=== PATIENT | male | born 1945 | race Caucasian/White ===

== ENCOUNTER 2019-11-03 14:22 | Inpatient (IN) | payer MEDICARE, OTHER ==
--- NOTE | 2019-11-03 15:06 | CT ---
EXAM: CT cervical spine PROVIDED CLINICAL HISTORY: Hit back of head after falling from standing position. Dizziness. TECHNIQUE: Contiguous axial CT images are obtained through the cervical spine from the skull base to the T1-2 le randall. Sagittal and coronal reformatted images are provided. COMPARISON: None FINDINGS: Degenerative changes are seen in the cervical spine. There is straightening of the normal cervical lo rdotic curvature. Fusion of the C3-4 and C4-5 levels is present. There is narrowing of the intervertebral disc spaces at all levels of the cervical spine. There is trace anterolisthesis of C2 on C3. Multilevel facet degenerative changes are identified. Moderate bilateral neural foraminal narrowing greater on the right is present at the C5-6 level. No fracture or traumatic subluxation is seen involving the cervical spine. No prevertebral soft tissue swelling apparent. Visualized lung apices appear clear. Visualized thyroid gland demonstrates a grossly normal nonenhanced CT appearance. Vascular calcifications are seen. IMPRESSION: 1. Degenerative changes cervical spine without acute fracture or traumatic subluxation. 2. Trace anterolisthesis of C2 on C3 attributable to severe facet hypertrophic changes. 3. Straightening of normal cervical lordotic curvature which may be related to positioning or muscle spasm..
[2019-11-03 16:01] LABS: #Basophils 0.1 thou/uL (0.0-0.2); #Eosinphils 0.1 thou/uL (0.0-0.7); #Lymphocytes 1.3 thou/uL (1.20-3.40); #Monocytes 0.6 thou/uL (0.11-0.59); #Neutrophils 4.7 thou/uL (1.40-6.50); %Basophils 0.8 % (0.0-1.0); %Eosinophils 1.1 % (0.0-10.0); %Lymphocytes 19.7 % (21.0-51.0); %Monocytes 8.9 % (0.0-10.0); %Neutrophils 69.5 % (42.0-75.0); Mean Corpuscular HGB CONC 34.7 g/dL (32.0-36.0); Mean Corpuscular Hemoglobin 32.9 pg (27.0-31.0); Mean Corpuscular Volume 94.9 fL (78.0-98.0); Platelet Count 174 thou/uL (130-400); RBC Distribution Width 12.1 % (11.5-14.5); Red Blood Cell (RBC) Count 4.85 mill/uL (4.70-6.10); White Blood Cell (WBC) Count 6.8 thou/uL (4.8-10.8)
--- NOTE | 2019-11-03 16:05 | CT ---
EXAM: BRAIN CT WITHOUT IV CONTRAST: 11/03/19 HISTORY: Injury from a fall. FINDINGS: Fairly prominent left parietal scalp hematoma. There is no associated skull fracture. There does appe ar to be a small punctate focus of probable subdural blood overlying the right frontal region seen on images 15 and 16 of the axial scan. There is certainly no mass effect or midline shift. IMPRESSION: Small punctate focus of high density in the right frontal subdural space possibly represent a tiny moore bdural hemorrhage. Prominent left sided parietal scalp hematoma. Marked atrophy and chronic white mat ter ischemic changes. Short term follow-up should be considered. Findings were discussed with Dr. Prater in the Emergency Room at 3:15 p.m. Code CR POS: OFF
[2019-11-03 16:21] LABS: ALT (SGPT) 45 U/L (8-55); AST (SGOT) 53 U/L (5-34); Albumin 4.2 g/dL (3.4-4.8); Alkaline Phosphatase 51 U/L (40-110); Anion Gap 14 mmol/L (10-20); BUN (Urea Nitrogen) 18 mg/dL (8.4-25.7); Bilirubin, Total 0.5 mg/dL (0.2-1.2); Calc. Creatinine Clearance 0 mL/min (70-130); Calcium 9.9 mg/dL (7.8-10.44); Carbon Dioxide 26 mmol/L (23-31); Chloride 100 mmol/L (98-107); Estimated GFR-MDRD 82; Globulin 3.1 g/dL (2.4-3.5); Glucose 125 mg/dL (83-110); Protein, Total 7.3 g/dL (5.8-8.1); Sodium 136 mmol/L (136-145)
[2019-11-03 16:27] LABS: PTT 29.1 sec (22.9-36.1); Prothrombin Time 12.8 sec (12.0-14.7)
[2019-11-03] MEDS ORDERED: Acetaminophen 500 MG TAB ONE (17:29)
[2019-11-03] MEDS ORDERED: Acetaminophen 325 MG TAB PO PRN ×2 (17:43→17:48)
[2019-11-03] MEDS ORDERED: Docusate 100 MG CAP PO PRN (17:48)
[2019-11-03] MEDS ORDERED: hydrALAZINE 20 MG/ML VIAL SLOW IVP PRN ×2 (17:55→18:30)
[2019-11-03] MEDS ORDERED: traMADol HCl 50 MG TAB PO PRN (17:57)
--- NOTE | 2019-11-03 18:18 | PDOC.HHP ---
Hospitalist HPI - History of Present Illness Fall, head injury History of Present Illness: This is a 74-year-old male patient with a history of hypertension, hyperlipidemia, cataract status post repair bilaterally who presented to the ED this afternoon after a fall and head injury. Patient notes that about 3 weeks ago he started having dizziness intermittently for which he has been taking meclizine. Today however he bent over to feed his dog and lost his balance and fell. He hit his head on the ground. He has not been on any anti-coagulants. He called EMS who came to pick him up and brought him to the ED for further evaluation. Besides dizziness patient notes that he has had chronic tinnitus for a long time. However denies any other focal neurological deficits including difficulty swallowing, difficulty talking , extremity weakness. He complains of ongoing headache Patient notes that about 2 months ago he had some upper respiratory viral syndrome which has since resolved. Denies any previous stroke or head trauma. [place] has developed chronic bilateral tinnitus. He also drinks alcohol however he does not smoke. On arrival in the ED CT scan of his head noted Small punctate right frontal subdural hemorrhage. Also has chronic white matter changes. Hospitalist team was consulted for admission and also neurosurgery was consulted. Hospitalist ROS - Review of Systems Constitutional: denies: fever, chills, sweats, weakness Eyes: denies: vision change, conjunctivae inflammation, eyelid inflammation ENT: reports: other (He has chronic tinnitus bilaterally). denies: ear pain, nose congestion Respiratory: denies: cough, shortness of breath, hemoptysis, SOB with excertion Cardiovascular: denies: chest pain, palpitations, orthopnea, paroxysmal noc. dyspnea Genitourinary: denies: dysuria, frequency, incontinence Musculoskeletal: denies: neck pain, shoulder pain Neurological: denies: weakness, numbness, change in speech, confusion, seizures Hospitalist History - Past Medical History Cardiac: denies: HTN, Hyperlipidemia Pulmonary: reports: Other (FRANCISCO) - Past Surgical History Other Surgical History: Cataract surgery, - Family History Other Family History: Non contributory - Social History Smoking Status: Never smoker - Exam General Appearance: negative: awake alert Eye: negative: anicteric sclera Eye - other findings: Anisocoria with right pupil 4 mm and left 2. Both reactive to light. EOMI ENT - other findings: Small bruise on head Neck: supple, symmetric, no thyromegaly Heart: RRR, no murmur, no gallops, no rubs Respiratory: no wheezes, no rales, no ronchi, normal chest expansion Gastrointestinal: soft, non-tender, non-distended, normal bowel sounds, no palpable masses Extremities: no cyanosis, no clubbing Extremities - other findings: Trace pedal edema Neurological: cranial nerve grossly intact Neurological - other findings: No focal neurological deficit Hospitalist Results - Labs Result Diagrams: 11/03/19 15:53 11/04/19 05:25 Lab results: WBC 6.8 thou/uL (4.8-10.8) 11/03/19 15:53 Hgb 16.0 g/dL (14.0-18.0) 11/03/19 15:53 Hct 46.0 % (42.0-52.0) 11/03/19 15:53 MCV 94.9 fL (78.0-98.0) 11/03/19 15:53 Plt Count 174 thou/uL (130-400) 11/03/19 15:53 Neutrophils % 69.5 % (42.0-75.0) 11/03/19 15:53 Sodium 136 mmol/L (136-145) 11/03/19 15:53 Potassium 4.0 mmol/L (3.5-5.1) 11/03/19 15:53 Chloride 100 mmol/L (98-107) 11/03/19 15:53 Carbon Dioxide 26 mmol/L (23-31) 11/03/19 15:53 BUN 18 mg/dL (8.4-25.7) 11/03/19 15:53 Creatinine 0.90 mg/dL (0.7-1.3) 11/03/19 15:53 Glucose 125 mg/dL (83-110) H 11/03/19 15:53 Calcium 9.9 mg/dL (7.8-10.44) 11/03/19 15:53 Total Bilirubin 0.5 mg/dL (0.2-1.2) 11/03/19 15:53 AST 53 U/L (5-34) H 11/03/19 15:53 ALT 45 U/L (8-55) 11/03/19 15:53 Alkaline Phosphatase 51 U/L (40-110) 11/03/19 15:53 Serum Total Protein 7.3 g/dL (5.8-8.1) 11/03/19 15:53 Albumin 4.2 g/dL (3.4-4.8) 11/03/19 15:53 CT head without contrast: Small frontal subdural hemorrhage Hospitalist H&P A/P - Plan Plan: This is a 74-year-old male patient with history of hypertension, hyperlipidemia who presents today with a small frontal subdural hemorrhage secondary to a fall. He does have had several weeks of ongoing dizziness. He will be admitted for observation. Frontal subdural hemorrhage. Hemorrhages small and punctate with no apparent neurological deficit in movement. We will admit to stroke telemetry unit and monitor. Neurosurgery followingrepeat CT scan in a.m. Neurochecks, PT evaluation in a.m. for vestibular function Not on anticoagulation however on aspirinwe will hold aspirin for tonight. We will keep n.p.o. at midnightpatient can eat if wanting CT shows no progression. Fall Possibilities include dizziness from vestibular neuronitis, TIA versus stroke, orthostatic hypotension Patient is not a smoker however he has risk factors of coronary disease, hypertension and hyperlipidemia on fenofibrate and niacin. Giving that he has been having ongoing dizziness for several weeks, and fell after her bent down to feed his dog, this may be less likely stroke. Repeat CT planned for morning monitor on telemetry Fall precautions Consider neuroconsult if neurological symptoms worsens Dizziness Patient notes more lightheadedness than vertiginous symptoms. Possibilities include postinfectious labyrinthitis/vestibular neuronitis, BPPV CT scan shows no hemorrhagic stroke as needed meclizine PT vestibular evaluation To consider neurology evaluation if worsens Fall precautions Anisocoria Right pupil larger than leftchronic according to patient following cataract surgeries. Extraocular muscle movements are intact and no other neurological deficits. This is less likely secondary to this current trauma We will continue monitoring. Hypertension Blood pressure elevated Patient is on amlodipine 10 mg daily, and metoprolol XL 50 mg twice daily. Also on olmesartan/HCTZ 40-12.5 mg daily PRN hydralazine/labetalol Coronary artery disease Patient on aspirin until lipidemic medications. We will hold aspirin. Continue rosuvastatin, fenofibrate and niacin VTE prophylaxis: SCD Diet: Low-salt diet CODE STATUS: Full code Activity: Bedrest, fall precautions
[2019-11-03] MEDS ORDERED: Meclizine HCl 12.5 MG TAB PO PRN (18:26)
[2019-11-03] MEDS ORDERED: Labetalol HCl 100 MG/20 ML VIAL SLOW IVP PRN (18:32)
[2019-11-03] MEDS ORDERED: Ondansetron PF 4 MG/2 ML Vial IVP PRN (19:11)
[2019-11-03] MEDS ORDERED: Ondansetron ODT 4 MG TAB SL PRN (19:11)
[2019-11-03 20:12] VITALS: BMI 37.0
[2019-11-03] MEDS: levETIRAcetam 500 MG TAB PO SCH (20:44)
[2019-11-03] MEDS: Labetalol HCl 100 MG/20 ML VIAL SLOW IVP PRN (23:43)
--- NOTE | 2019-11-04 00:25 | CON ---
DATE OF CONSULTATION: 11/03/2019 CHIEF COMPLAINT: Fall. HISTORY OF PRESENT ILLNESS: Mr. Briceno is a 74-year-old man, presents to [facility] Emergency Department due to fall in his kitchen. He states he was bending over and feeding his dog when he fell hitting his head on the ground. Has been taking meclizine for intermittent vertigo and chronic tinnitus. Denies taking any anti- coagulants but is taking a daily baby aspirin. His called 911 and was transported by EMS to [facility]ED. CT of the cervical spine showed an auto fusion at C3-C4 and C4-C5 levels. Narrowing of the intervertebral disk space at all levels of the cervical spine. spondylolisthesis C2-3 with moderate bilateral foraminal stenosis. No subluxation, or fractures of the cervical spine. Brain CT, 5 mm right frontal subdural hemorrhage. Denies any neck pain, paraesthesia, or weakness. No focal neurological deficits. He is moving all of his extremities. Maybe his peripheral neuropathy is affecting his balance. REVIEW OF SYSTEMS: Constitutional: Denies:, fever, chills. ENT: Denies: Change in vision or hearing. Cardiac: Denies:, chest pain, shortness of breath, diaphoresis. Pulmonary: Denies:, shortness of breath, cough, hemoptysis. Gastrointestinal: Denies:, abdominal pain, nausea, vomiting, diarrhea, change in stool formation and consistency. Genitourinary: Denies:, trouble with urination, frequency of urination, bloody urine. Skin: Denies:, skin rash, bruising, bleeding, skin masses. Musculoskeletal: As per the History of Present Illness. Neurologic: As per the History of Present Illness. Psychologic: As per the History of Present Illness. PAST MEDICAL HISTORY: Hypertension and hyperlipidemia. PAST SURGICAL HISTORY: Thyroidectomy, Right cataract surgery SOCIAL HISTORY: The patient denies nicotine. Denies illicit drug use. Alcohol:drinks one bottle of wine daily. ALLERGIES: NO KNOWN DRUG ALLERGIES. CURRENT MEDICATIONS: 1. Clonazepam 0.5 mg. 2. Fish oil 1000 mg capsules. 3. Resveratrol 100 mg. 4. Rosuvastatin 40 mg. 5. Amlodipine 5 mg. 6. Myrbetriq 50 mg. 7. Baby aspirin. 8. Fenofibrate 160 mg. 9. Paroxetine 20 mg. 10. Metoprolol 50 mg. 11. Olmesartan and hydrochlorothiazide 40-12.5 mg. 12. Niacin 500 mg. PHYSICAL EXAMINATION: VITAL SIGNS: Blood pressure 157/96, pulse is 78, and temperature 98.2. HEENT: Anisocoria right pupil 3 mm, left pupil 2 mm. Pupils are reactive to light. Extraocular movements are intact. NECK: Soft and supple. No masses are noted. Range of motion is intact and nonpainful. SKIN: Left scalp hematoma in the occipital area NEUROLOGIC: Awake, alert, and oriented x3. Memory, attention, and fund of knowledge normal. Cranial nerves grossly intact. Upper extremity 5/5 strength in his deltoids, biceps, triceps, wrist extensions, finger extension, and finger intrinsics. Sensation is equal bilaterally. Reflexes are symmetric. Lower extremity 5/5 strength in his iliopsoas, quadriceps, hamstrings, anterior tib, EHL, and gastrocnemius. There is no area of dermatomal sensory loss. The reflexes are symmetric. The toes are downgoing. Gait and station were not assessed. Valerie coma scale, eye opening 4, verbal response 5, and motor response 6. LABORATORY DATA: Platelet count 174. PT 12.8, INR 1.0, and APTT 29.1. Sodium 136. IMAGING: CT of the cervical spine, spondylolisthesis C2-3 with moderate bilateral foraminal stenosis. Auto fusion of the C3-C4 and C4-C5 levels. Narrowing of the intervertebral disk space at all levels of the cervical spine. No trauma , subluxation, or fractures of the cervical spine. Brain CT, 5 mm right frontal subdural hemorrhage. PLAN: We will repeat the CT of the brain tomorrow morning. Also, will get a upright flexion and extension cervical spine x-ray to check for any instability of the neck. If Brain CT Scan shows improvement or no change, we will transfer care to Medicine Service. Supportive care. No intracranial surgery at this time. We will have him follow up in 2 to 3 weeks in our clinic and repeat scan prior to the visit. Job ID: [id number] [facility]
[2019-11-04] MEDS: Labetalol HCl 100 MG/20 ML VIAL SLOW IVP PRN (03:44)
[2019-11-04] MEDS ORDERED: Ondansetron PF 4 MG/2 ML Vial IVP PRN (06:01)
[2019-11-04 06:10] LABS: Anion Gap 16 mmol/L (10-20); BUN (Urea Nitrogen) 17 mg/dL (8.4-25.7); Calc. Creatinine Clearance 130 mL/min (70-130); Calcium 9.8 mg/dL (7.8-10.44); Carbon Dioxide 24 mmol/L (23-31); Chloride 99 mmol/L (98-107); Estimated GFR-MDRD 85; Glucose 115 mg/dL (83-110); Potassium 3.4 mmol/L (3.5-5.1); Sodium 136 mmol/L (136-145)
--- NOTE | 2019-11-04 07:38 | RAD ---
FOUR VIEWS OF THE CERVICAL SPINE: Neutral, lateral and flexion extension radiographs were obtained. COMPARISON: Comparisons are made with a prior CT dated 11/03/2019 at 2:53 p.m. FINDINGS: The advanced multilevel degenerative disk change is similar-appearing. There is ankylosis of the fac et complexes of C3-4. There is advanced degenerative change of the facet complexes at C2-3. There i s mild anterior translation of C2-3 with flexion that reduces extension and neutral positioning. No additional abnormal translational motion is evident. The atlantodens interval remains stable on the dynamic lateral projections. IMPRESSION: Advanced facet degenerative change at C2-3 with anterior translation of C2-3 with flexion but reducti on on the extension and neutral positions. POS: BH
--- NOTE | 2019-11-04 08:12 | PRG ---
DATE OF SERVICE: 11/04/2019 I personally interviewed and examined the patient and I agreed with documentation of Shantanu Fernández PA-C, dated 11/03/2019. Briefly, Rey Briceno is a 74-year-old gentleman, admitted yesterday after a fall and head trauma and resulted in a tiny right-sided subdural hematoma. There is also a scalp hematoma in the occipital area on the left. CT examination of the cervical spine was negative for fracture. Mr. Briceno tells me he has been off balance for months and he had a couple of falls within the last year. He also tells me that his feet feel cold and they are bit discolored. Although, he had Meniere disease years ago. The current episode of imbalance is not related to vertiginous feeling or nausea. Overnight, no fevers have been recorded. Blood pressures have been between the 130s and 150s. I do not find any neurological deficit except for a stocking distribution sensory loss in lower extremities. This morning, CT examination of the brain does not reveal any increase in size of the tiny subdural. This should not amount too much and it requires no surgical intervention. Mr. Briceno is ready for discharge. We cautioned him to purchase and use a walker. At his followup appointment in 2 weeks, we will obtain a CT examination of the brain to ensure all blood products have resolved. We will talk to him at that time about a workup for either cervical stenosis (the CT examination of the cervical spine shows arthritic changes, but not a significant amount of stenosis) or peripheral neuropathy affecting his balance. Job ID: [id number] [facility]
--- NOTE | 2019-11-04 08:49 | CT ---
PRELIMINARY REPORT/DIRECT RADIOLOGY/EMERGENCY AFTER HOURS PROCEDURE: EXAM: CT Head Without Intravenous Contrast. CLINICAL HISTORY: F/U SUBDURAL HEMORRHAGE COMPARISON: CT\[place]\SR - CT BRAIN WO CON - 11/03/2019 02:52 PM CDT FINDINGS: BRAIN: No appreciable interval change of small right frontal extra-axial 6 x 6 x 13 mm hyperdensity, slightly hyperdense to the adjacent brain parenchyma. No additional intracranial hyperdensity suspici ous for acute hemorrhage. No midline shift. No CT evidence of acute infarct in a large vascular simón tory. Nonspecific white matter hypoattenuation suggesting chronic age-related small vessel changes. A therosclerotic calcifications at the skull base. VENTRICLES: Prominent ventricles and cortical sulci in keeping with age-related involution. SINUSES AND MASTOIDS: Trace thickening/fluid in the mastoid air cells. Minimal paranasal sinus mucosa l thickening. SOFT TISSUES: Large left parietal scalp hematoma. BONES: No depressed calvarial fracture. IMPRESSION: No appreciable interval change of small right frontal extra-axial acute hemorrhage/lesion . ELECTRONICALLY SIGNED BY: Glynn Muller MD Nov 04, 2019 5:32:43 AM CDT FINAL REPORT: CT BRAIN WITHOUT CONTRAST: I agree with the preliminary report provided. The extraaxial hemorrhage overlying the right frontal convexity is not appreciably changed in size from a comparison dated 11/03/2019 at 2:54 p.m. Large le ft parietal scalp contusion is again noted. Generalized cerebral and cerebellar atrophy is stable. No acute intraparenchymal hemorrhage or midline shift is noted. POS:
[2019-11-04] MEDS ORDERED: Amlodipine 10 MG TAB PO SCH (09:00)
[2019-11-04] MEDS ORDERED: Fenofibrate 48 MG TAB PO SCH (09:00)
[2019-11-04] MEDS ORDERED: Amlodipine 5 MG TAB PO SCH (09:00)
[2019-11-04] MEDS: levETIRAcetam 500 MG TAB PO SCH (09:41)
[2019-11-04 11:31] VITALS: BP 147/92; TEMP 98.2
[2019-11-04] MEDS ORDERED: Potassium Chloride 20 MEQ TAB PO SCH (12:00)
--- NOTE | 2019-11-04 13:37 | DIS ---
DATE OF ADMISSION: 11/03/2019 DATE OF DISCHARGE: 11/04/2019 DISCHARGE DISPOSITION: Home. FOLLOWUP: 1. Follow up with primary care physician, Dr. Hank Ca next week. 2. Follow up with Neurosurgery in 2 weeks with a repeat CT scan of the brain. 3. Fall precaution was emphasized. 4. The patient was advised to discontinue aspirin and other NSAID. 5. Fall precaution was emphasized. Rolling walker will be arranged. [facility] will be arranged. The patient was evaluated on the day of discharge. Denies any new complaints. No chest pain, shortness of breath, palpitations, double vision, blurring of vision, or facial asymmetry reported. BRIEF HOSPITAL COURSE: The patient is a 74-year-old male who presented to the hospital after episode of mechanical fall without any loss of consciousness. His workup was consistent with frontal subdural hemorrhage. He was monitored in the stroke unit. Repeat CT scan in the morning did not show significant worsening. Aspirin has been discontinued. He was evaluated by Physical Therapy and appears stable for discharge. Rolling walker will be arranged. Patient improved earlier than expected and appears stable for discharge. FINAL DIAGNOSES: 1. Mechanical fall causing frontal subdural hemorrhage. 2. Hypertension. 3. Coronary artery disease. 4. Chronic kidney disease, stage 2. 5. Hypokalemia with potassium 3.4 at discharge, replaced. 6. Obesity with a BMI of 37. 7. Degenerative joint disease. The patient understands the above plan of care. Job ID: [id number] [facility]
[2019-11-04 14:07] LABS: SARS-CoV-2 MS2 Positive; SARS-CoV-2 N Gene Negative; SARS-CoV-2 S Gene Negative; SARS-CoV-2 by NAA Not Detected (NotDetected); SARS-CoV-2 orf1ab Negative
[2019-11-04] MEDS ORDERED: Rosuvastatin 20 MG TAB PO SCH (21:00)
--- NOTE | 2019-11-11 15:34 | EKG ---
Test Reason : FALL Blood Pressure : / mmHG Vent. Rate : 078 BPM Atrial Rate : 078 BPM P-R Int : 244 ms QRS Dur : 116 ms QT Int : 400 ms P-R-T Axes : 015 -38 030 degrees QTc Int : 456 ms Sinus rhythm with 1st degree A-V block Left axis deviation Left ventricular hypertrophy with QRS widening Cannot rule out Septal infarct , age undetermined Abnormal ECG Confirmed by SYLVIE YAÑEZ DO ([id number]), newspaper editor VENKATA HOPPER ([id number]) on 11/11/2019 3:34:19 PM Referred By: Confirmed By:SYLVIE YAÑEZ DO
== END 2019-11-04 14:20 | disposition home health service (06) | DRG 87 ==
LOC: ERS 14:22 → 2SE 16:54
PROVIDERS: ADMIT Student in an Organized Health Care Education/Training Program; ATTEND Student in an Organized Health Care Education/Training Program
DX: S06.5X0A Traumatic subdural hemorrhage without loss of consciousness, initial encounter (principal); W18.30XA Fall on same level, unspecified, initial encounter; Z20.828 Contact with and (suspected) exposure to other viral communicable diseases; I12.9 Hypertensive chronic kidney disease with stage 1 through stage 4 chronic kidney disease, or unspecified chronic kidney disease; I25.10 Atherosclerotic heart disease of native coronary artery without angina pectoris; N18.2 Chronic kidney disease, stage 2 (mild); E87.6 Hypokalemia; E66.9 Obesity, unspecified; M19.90 Unspecified osteoarthritis, unspecified site; E78.5 Hyperlipidemia, unspecified; G47.33 Obstructive sleep apnea (adult) (pediatric); H57.02 Anisocoria; M43.12 Spondylolisthesis, cervical region; M50.321 Other cervical disc degeneration at C4-C5 level; M48.02 Spinal stenosis, cervical region; E78.00 Pure hypercholesterolemia, unspecified; Y92.010 Kitchen of single-family (private) house as the place of occurrence of the external cause; Z68.37 Body mass index [BMI] 37.0-37.9, adult; Z79.82 Long term (current) use of aspirin; Z79.899 Other long term (current) drug therapy
CPT/HCPCS: 36415; 70450; 72040; 72125; 80048; 80053; 85025; 85610; 85730; 86850; 86900; 86901; 87635; 93005; G0390; J2405; U0003